=== PATIENT | female | born 1985 | race African-American/Black ===

== ENCOUNTER 2024-04-18 09:42 | Emergency (ER) | payer SELFPAY ==
[~2024-04-18] VITALS: Ht 170.2 cm; Wt 70.0 kg
[2024-04-18 09:46] VITALS: O2SAT 97
[2024-04-18] MEDS: ACETAMINOPHEN 325MG TABLET PO ONE (10:00)
[2024-04-18] MEDS: KETOROLAC 30MG/ML VIAL IM ONE (10:00)
[2024-04-18] MEDS: ONDANSETRON 4MG ODT PO ONE (10:00)
[2024-04-18 10:19] LABS: HEMATOCRIT. 38.3 % (36.0-48.0); HEMOGLOBIN. 12.2 g/dL (12.0-16.0); MEAN CORPUSCULAR HEMOGLOBIN 25.9 pg (28.0-32.0); MEAN CORPUSCULAR HGB CONC 31.8 g/dL (31.0-37.0); MEAN CORPUSCULAR VOLUME 81.6 fL (81.0-99.0); PLATELET 169 x1000/uL (130-400)
[2024-04-18 10:38] LABS: DIFFERENTIAL COMMENT 1
[2024-04-18 11:16] LABS: ATYPICAL LYMPHOCYTES 1
[2024-04-18 11:17] LABS: PLATELET ESTIMATE NORMAL
[2024-04-18 12:32] LABS: CALCIUM 9.5 mg/dL (8.7-10.4); CARBON DIOXIDE 24 mEq/L (21-32); CHLORIDE 101 mEq/L (98-107); CREATININE 0.8 mg/dL (0.6-1.0); GLUCOSE 101 mg/dL (70-105); POTASSIUM 3.8 mEq/L (3.5-5.1); SODIUM 132 mEq/L (136-145); UREA NITROGEN BLOOD 10 mg/dL (9-23)
[2024-04-18 12:33] LABS: TROPONIN I HIGH SENSITIVITY 9 ng/L (3.0-34)
[2024-04-18 12:57] VITALS: BP 125/84; PULSE 87; RESP 18; TEMP 37.11408; O2SAT 97
== END 2024-04-18 12:57 | disposition home or self-care (01) ==
LOC: ER 09:47
DX: M79.10 Myalgia, unspecified site (principal); R11.2 Nausea with vomiting, unspecified; R06.02 Shortness of breath; Z88.5 Allergy status to narcotic agent
CPT/HCPCS: 99284; 71045; 80048; 83880; 85025; 84484; 36415; 96372; Q0162; J1885

== ENCOUNTER 2024-04-26 23:10 | Emergency (ER) | payer SELFPAY ==
[~2024-04-26] VITALS: Ht 175.3 cm; Wt 100.0 kg
[2024-04-26 23:40] VITALS: BP 126/70; TEMP 98.6
[2024-04-27] MEDS: IPRATROPIUM BROMIDE (0.02%) 0.5MG/2.5ML NEB HHN STA (01:03)
[2024-04-27] MEDS: PREDNISONE 20MG TABLET PO STA (01:03)
[2024-04-27] MEDS: ALBUTEROL (0.083%) 2.5MG/3ML NEB HHN STA (01:03)
[2024-04-27 02:02] LABS: BASOPHILS % 0.3 % (0.0-2.0); EOSINOPHILS % 0.9 % (0.0-5.0); HEMATOCRIT. 36.8 % (36.0-48.0); HEMOGLOBIN. 11.7 g/dL (12.0-16.0); LYMPHOCYTES % 46.2 % (20.0-50.0); MEAN CORPUSCULAR HEMOGLOBIN 25.6 pg (28.0-32.0); MEAN CORPUSCULAR HGB CONC 31.7 g/dL (31.0-37.0); MEAN CORPUSCULAR VOLUME 80.7 fL (81.0-99.0); MEAN PLATELET VOLUME 8.5 fl (7.4-10.4); MONOCYTES % 12.4 % (2.0-8.0); NEUTROPHILS % 40.2 % (40.0-76.0); PLATELET 223 x1000/uL (130-400); RED BLOOD CELL COUNT 4.56 mill/uL (4.2-5.4); RED CELL DISTRIBUTION WIDTH 15.4 % (11.6-14.6); WHITE BLOOD COUNT 5.7 x1000/uL (4.5-11.0)
[2024-04-27 02:06] LABS: CHLORIDE 103 mEq/L (98-107); POTASSIUM 3.1 mEq/L (3.5-5.1); SODIUM 140 mEq/L (136-145)
[2024-04-27 02:07] LABS: CALCIUM 9.4 mg/dL (8.7-10.4); CARBON DIOXIDE 29 mEq/L (21-32)
[2024-04-27 02:12] LABS: CREATININE 0.7 mg/dL (0.6-1.0); GLUCOSE 104 mg/dL (70-105); UREA NITROGEN BLOOD 14 mg/dL (9-23)
[2024-04-27 02:14] LABS: ALANINE AMINOTRANSFERASE 22 IU/L (10-49); ALBUMIN 4.2 g/dL (3.2-4.8); ASPARTATE AMINOTRANSFERASE 20 IU/L (<34); BILIRUBIN TOTAL 0.4 mg/dL (0.1-1.0)
[2024-04-27 02:15] LABS: PROTEIN TOTAL 7.4 g/dL (6.0-8.3)
[2024-04-27] MEDS: POTASSIUM CHLORIDE 20MEQ/PACKET PO ONE (02:30)
[2024-04-27] MEDS ORDERED: ALBUTEROL (0.083%) 2.5MG/3ML NEB HHN NR (03:30)
[2024-04-27] MEDS ORDERED: IPRATROPIUM BROMIDE (0.02%) 0.5MG/2.5ML NEB HHN NR (03:30)
[2024-04-27 03:35] VITALS: PULSE 88; RESP 22; O2SAT 98
[2024-04-27] MEDS: POTASSIUM CHLORIDE 20MEQ/PACKET PO NR (04:00)
[2024-04-27] MEDS: PREDNISONE 20MG TABLET PO NR (04:16)
[2024-04-27] MEDS ORDERED: TUSSL MT (05:47)
[2024-04-27] MEDS ORDERED: ALBU18HF2 IH (05:47)
[2024-04-27] MEDS ORDERED: P20 MT (05:47)
== END 2024-04-27 05:00 | disposition home or self-care (01) ==
LOC: ER 23:10
DX: J45.901 Unspecified asthma with (acute) exacerbation (principal); E87.6 Hypokalemia; M19.90 Unspecified osteoarthritis, unspecified site; Z87.891 Personal history of nicotine dependence; Z88.5 Allergy status to narcotic agent
CPT/HCPCS: 99284; 80053; 85025; 36415; 71045; 94640; J7512; Z7610 ×2

== ENCOUNTER 2024-10-19 19:18 | Emergency (ER) | payer MEDICAID ==
[~2024-10-19] VITALS: Ht 172.7 cm; Wt 91.0 kg
[~2024-10-19 19:18] MED LIST: ALBU18HF2 IH; P20 MT; TUSSL MT
[2024-10-19 19:24] VITALS: O2SAT 99
[2024-10-19 20:10] LABS: BASOPHILS % 0.7 % (0.0-2.0); EOSINOPHILS % 0.7 % (0.0-5.0); HEMATOCRIT. 37.8 % (36.0-48.0); HEMOGLOBIN. 12.2 g/dL (12.0-16.0); LYMPHOCYTES % 21.5 % (20.0-50.0); MEAN CORPUSCULAR HEMOGLOBIN 26.5 pg (28.0-32.0); MEAN CORPUSCULAR HGB CONC 32.3 g/dL (31.0-37.0); MEAN CORPUSCULAR VOLUME 81.9 fL (81.0-99.0); MONOCYTES % 7.8 % (2.0-8.0); NEUTROPHILS % 69.3 % (40.0-76.0); PLATELET 252 x1000/uL (130-400); RED BLOOD CELL COUNT 4.62 mill/uL (4.2-5.4); RED CELL DISTRIBUTION WIDTH 15.3 % (11.6-14.6); WHITE BLOOD COUNT 8.2 x1000/uL (4.5-11.0)
[2024-10-19 20:20] LABS: CARBON DIOXIDE 24 mEq/L (21-32); CHLORIDE 102 mEq/L (98-107); POTASSIUM 4.1 mEq/L (3.5-5.1); SODIUM 134 mEq/L (136-145)
[2024-10-19 20:21] LABS: CALCIUM 9.5 mg/dL (8.7-10.4)
[2024-10-19 20:26] LABS: CREATININE 0.7 mg/dL (0.6-1.0); GLUCOSE 87 mg/dL (70-105); UREA NITROGEN BLOOD 8 mg/dL (9-23)
[2024-10-19 20:27] LABS: ALANINE AMINOTRANSFERASE < 7 IU/L (10-49); ALBUMIN 4.3 g/dL (3.2-4.8); ASPARTATE AMINOTRANSFERASE 11 IU/L (<34)
[2024-10-19 20:28] LABS: BILIRUBIN DIRECT 0.1 mg/dL (<=3.0); BILIRUBIN TOTAL 0.4 mg/dL (0.1-1.0)
[2024-10-19] MEDS: SODIUM CHLORIDE 0.9% 1,000 ML IV ONE (21:59)
[2024-10-19] MEDS: ONDANSETRON HCL 4MG/2ML INJ IV ONE (21:59)
[2024-10-19 22:35] LABS: CLARITY URINE CLOUDY (CLEAR); COLOR URINE YELLOW (YELLOW); GLUCOSE URINE NEGATIVE (NEGATIVE); KETONES URINE 2+ (NEGATIVE); LEUKOCYTE ESTERASE URINE 3+ (NEGATIVE); NITRITE URINE NEGATIVE (NEGATIVE); OCCULT BLOOD URINE NEGATIVE (NEGATIVE); PROTEIN URINE TRACE (NEGATIVE); SPECIFIC GRAVITY URINE 1.026 (1.005-1.030)
[2024-10-19 22:58] LABS: BACTERIA URINE TRACE; RBC URINE 0-2 /hpf (0-2); SQUAMOUS EPITHELIAL CELL URINE 1+ /lpf (RARE/1+)
[2024-10-19 23:00] VITALS: BP 113/67; PULSE 84; RESP 16; TEMP 36.8; O2SAT 100
[2024-10-19] MEDS ORDERED: CEFP200T14 MT (23:21)
== END 2024-10-19 23:39 | disposition home or self-care (01) ==
LOC: ER 19:18
DX: O44.01 Complete placenta previa NOS or without hemorrhage, first trimester (principal); O08.83 Urinary tract infection following an ectopic and molar pregnancy; M19.90 Unspecified osteoarthritis, unspecified site; Z88.5 Allergy status to narcotic agent; Z3A.09 9 weeks gestation of pregnancy
CPT/HCPCS: 99285; 96374; 76801; 96361; 80076; 80048; 81003; 84702; 83690; 85025; 86850; 86900; 86901; 87086; 87186; 87077; 36415; 76817; J2405; J7030